=== PATIENT | male | born 1995 | race Caucasian/White ===

== ENCOUNTER 2024-09-06 14:51 | Outpatient (AMB) | payer OTHER, SELFPAY ==
--- NOTE | 2024-09-06 14:53 | A.OFFPC_ITS ---
Vital Signs 09/06/24 14:57 Height 5 ft 11 in Weight 253 lb BMI 35.3 BP 182/102 H Blood Pressure Location Rt brachial Pulse 88 Pulse Source Pulse Oximeter Temp 97.5 F Pulse Oximetry (%) 96 Intake Visit Reasons: physical Intake Note: sore throat a couple months back lost his voice and voice has not been the same, 2 years ago hurt his back at work and not any better. Allergies No Known Allergies Allergy (Verified 09/06/24 17:08) Medication List - Last Reconciled 09/06/24 by Christine Arnold PA-C No Known Home Meds [facility] Medical History History of meningitis Obesity, Class II, BMI 35-39.9 Elevated blood pressure reading Annual physical exam Low back pain radiating to lower extremity Hoarseness Neck pain Nasal polyps Nasal congestion Sinus pressure Left testicular pain Surgical History History of tonsillectomy Social History Housing: House Housing Other:: , Three Kids all Son's Patient Tobacco Use Status: Never used Tobacco Second Hand Smoke Exposure: No service: No Current occupational status: employed Current occupational exposures/hazards: Yes Cognitive needs: No Hearing needs: No Vision needs: Yes Physical exam (Primary Care) Vital Signs: Last Vital Signs Temp 97.5 F 09/06/24 14:57 Pulse 88 09/06/24 14:57 BP 182/102 H 09/06/24 14:57 Pulse Ox 96 09/06/24 14:57 Care Plan Goal for BP management: <130/80 may be related to white coat syndrome. Patient recently had a dot examination last week and past with a normal blood pressure. Patient will monitor his blood pressure for the next 2 weeks and return with a diary of his blood pressure checks. At that time if his blood pressure has been persistently elevated he will be started on antihypertensive. Patient understands and agrees with this plan. BMI result Body Mass Index 35.3 BMI Assessment/Plan discussion: High BMI High, discussed plan: lifestyle, weight reduction, dietary, physical activity and alcohol moderation Coding Level of Care Code New Pt Prev Care 18-39yr([id number] Diagnoses Annual physical exam Z00.00 Left testicular pain N50.812 Low back pain radiating to lower extremity M54.50; M79.606 Hoarseness R49.0 Neck pain M54.2 Nasal polyps J33.9 Nasal congestion R09.81 Sinus pressure J34.89 Elevated blood pressure reading R03.0 Obesity, Class II, BMI 35-39.9 E66.812 Assessment & Plan Assessment & Plan (1) Annual physical exam: Code(s): Z00.00 - Encounter for general adult medical examination without abnormal findings Category: Medical (2) Left testicular pain: Code(s): N50.812 - Left testicular pain Category: Medical Plan: Patient with intermittent left testicular pain. Patient most likely varicocele versus epididymitis. H&P not consistent with testicular torsion. A scrotal ultrasound was ordered at this time. Condition is stable will continue to monitor. (3) Low back pain radiating to lower extremity: Code(s): M54.50 - Low back pain, unspecified; M79.606 - Pain in leg, unspecified Category: Medical Plan: Patient reports lower back pain since a work-related injury that occasionally radiates down his leg. He denies any deficits, weakness urinary bowel retention or incontinence, saddle anesthesias or any recent falls. Patient has had x-rays of his lumbar spine in the past. Will order MRI of lumbar spine at this time. Condition is chronic and stable continue to monitor (4) Hoarseness: Code(s): R49.0 - Dysphonia Category: Medical Plan: Patient with tonsillectomy 4 years ago intermittent episodes of hoarseness and neck pain. Patient concerned requesting imaging. Will order CT scan of neck with IV contrast for further evaluation and treatment. Condition is chronic and stable continue to monitor. (5) Neck pain: Code(s): M54.2 - Cervicalgia Category: Medical Plan: Patient with tonsillectomy 4 years ago intermittent episodes of hoarseness and neck pain. Patient concerned requesting imaging. Will order CT scan of neck with IV contrast for further evaluation and treatment. Condition is chronic and stable continue to monitor. (6) Nasal polyps: Code(s): J33.9 - Nasal polyp, unspecified Category: Medical Plan: Patient with nasal congestion, intermittent headaches, sinus pressure pain, hoarseness and he believes he may have a polyp to the left Nare. Will order CT scan sinuses to better evaluate. Condition is chronic and stable continue to monitor. (7) Nasal congestion: Code(s): R09.81 - Nasal congestion Category: Medical Plan: Patient with nasal congestion, intermittent headaches, sinus pressure pain, hoarseness and he believes he may have a polyp to the left Nare. Will order CT scan sinuses to better evaluate. Condition is chronic and stable continue to monitor. (8) Sinus pressure: Code(s): J34.89 - Other specified disorders of nose and nasal sinuses Category: Medical Plan: Patient with nasal congestion, intermittent headaches, sinus pressure pain, hoarseness and he believes he may have a polyp to the left Nare. Will order CT scan sinuses to better evaluate. Condition is chronic and stable continue to monitor. (9) Elevated blood pressure reading: Code(s): R03.0 - Elevated blood-pressure reading, without diagnosis of hypertension Category: Medical Plan: Patient's blood pressure noted to be elevated today. He may have white coat syndrome due to patient recently had a dot physical exam for his recertification and had a normal blood pressure. Patient will be sent home with instructions to monitor his blood pressure once a day for the next 2 weeks and return with a blood pressure diary. We explained to him if he has elevated blood pressure within the next 2 weeks he will be started on antihypertensive. Patient understands agrees with this plan. (10) Obesity, Class II, BMI 35-39.9: Code(s): E66.812 - Obesity, class 2 Category: Medical Plan: Patient will improve his diet and exercise regimen. Condition is chronic and stable continue to monitor. Plan Plan Patient was informed and verbally consented to the use of an ambient scribe for clinic note documentation during this visit. 1. Chronic Back Pain An MRI of the lumbar spine will be pursued to identify the cause of persistent pain. Conservative management with stretches and good posture is advised until further evaluation. 2. Sciatica Treatment through symptomatic monitoring and assessment with imaging planned. Physical therapy considered upon readjustment of diagnosis. 3. Essential Hypertension The patient will monitor blood pressure readings at home for two weeks and record them to determine if hypertension is ongoing. Instructed lifestyle modifications to include reduced salt intake and regular exercise. 4. Hoarseness Post-surgical hoarseness management with voice rest. ENT evaluation will be considered if persistent. 5. Nasal Polyp A CT scan of facial bones will be conducted to explore the presence of nasal polyps. ENT consultation may follow based on results. 6. left scrotal pain Scheduled an ultrasound for further evaluation. Interim symptomatic care involves support and anti-inflammatory practices as required. Discussion Notes During our discussion, I addressed the likelihood of essential hypertension and emphasized the importance of regularly monitoring and recording blood pressure levels at home to guide management. Lifestyle modifications including reduced salt intake and increased physical activity were recommended to address hypertension and improve overall health. We discussed the need for imaging for nasal polyps and back pain to further our evaluation. I ensured the patient understood the proposed tests, their purpose, and the relevant follow-up steps. We also planned CT imaging for sinus evaluation and lumbar spine MRI. The importance of ENT consultation for continued hoarseness was highlighted. I provided reassurance and educated on the condition of occasional epididymal pain, noting the importance of further evaluation without immediate intervention. Orders: Orders Comprehensive [place]. Panel Fast Today . - Encounter for general adult m edical examination without abnormal findings Magnesium Today . - Encounter for general adult medical examination without abnormal findings Phosphorus Today Z. - Encounter for general adult medical examination without abnormal findings Zinc Today Z. - Encounter for general adult medical examination without abnormal findings Vitamin B12 and Folate Today Z. - Encounter for general adult medical examination without abnormal findings Vitamin B1 Today . - Encounter for general adult medical examination without abnormal findings Vitamin A Today . - Encounter for general adult medical examination without abnormal findings TSH reflex Free T4 Today .00 - Encounter for general adult medical examination without abnormal findings MR lumbar spine wo con Today M54.50 - Low back pain, unspecified, M79.606 - Pain in leg, unspecified C Reactive Protein Today Z00.00 - Encounter for general adult medical examination without abnormal findings Complete Blood Count Auto Diff Today Z00.00 - Encounter for general adult medical examination without abnormal findings Erythrocyte Sedimentation Rate Today Z. - Encounter for general adult medical examination without abnormal findings Lipid Panel Today Z00.00 - Encounter for general adult medical examination without abnormal findings Hemoglobin A1c Today Z. - Encounter for general adult medical examination without abnormal findings Liver Panel Today . - Encounter for general adult medical examination without abnormal findings Parathyroid Hormone Intact Today Z. - Encounter for general adult medical examination without abnormal findings Vitamin D 25-OH Total Today Z00.00 - Encounter for general adult medical examination without abnormal findings Testosterone, Total Today Z00.00 - Encounter for general adult medical examination without abnormal findings PSA,Total (Free>4and<10) Today Z00.00 - Encounter for general adult medical examination without abnormal findings US scrotum Today N50.812 - Left testicular pain CT sinus wo IV con Today J33.9 - Nasal polyp, unspecified, J34.89 - Other specified disorders of nose and nasal sinuses, R09.81 - Nasal congestion CT soft tissue neck w IV con Today M54.2 - Cervicalgia, R49.0 - Dysphonia Patient Instructions: Patient Instructions - Monitor and record blood pressure at home twice daily for two weeks, and report findings. - Reduce salt intake and increase physical activity. - Schedule and complete a CT scan for nasal evaluation and MRI for back pain assessment. - Pay attention to hoarseness; obtain CT scan soft tissue neck, if persistent, consider ENT evaluation. - Be aware of signs requiring urgent care, such as significant increase or decrease in blood pressure, severe pain, or new neurological symptoms. - Keep a dedicated log of symptoms, especially related to back pain and epididymal discomfort. Scribe Plan - Not visible on output: History of Present Illness The patient is a 29-year-old male presenting for his initial primary care examination and to establish a new primary care provider. 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 He went to [place] when. He reports a past medical history of tonsillectomy 4 years ago. He denies being on any medications at this time. 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 On exam today he was noted to have a blood pressure reading of 182/102 mmHg raised concerns for possible undiagnosed hypertension. Although patient reports he just had a doubt examination and had a normal blood pressure last week and was able to re-certify for his DOT certification. A history of chronic back pain is noted, mainly from a previous work incident. Patient reports this was a work-related injury when he worked in [place] in the past. He was working with the [employer] and when he went to dump a pool pump into the [employer] truck he felt a sudden pain in his lower back. He reports he believes he had x-ray imaging and had physical therapy although he was unable to finish physical therapy and was released from that job. Since then he has been having back pain and intermittently it is worse and patient is concerned about this. He denies any recent sudden weight gain or weight loss, lower extremity paresthesias, weakness, recent falls or trauma, urinary incontinence or bowel incontinence or retention, saddle anesthesias or any other symptoms related to this. Patient also concerned due to chronic nasal congestion and believes he may have a polyp in his left Nare. He also reports occasional hoarseness since his tonsillectomy 4 years ago. He also reports recently having a hematoma to his left almaraz from a soccer injury when he was playing with his brother. He also reports some testicular pain that has been present for months on the left testicle. He denies any thoughts of STIs, abnormal penile discharge, rashes or lesions to the penile area or the scrotum. He reports he is able to urinate normally and have normal bowels. Social History - Employment: Engages in heavy physical work; experienced work-related injury. - Family Status: , with children. - Substance Use: Denies smoking or illicit drug use. - Exercise: Previously participated in weightlifting, but inconsistently adheres to a fitness regimen. - Nutritional Intake: Recently increased protein intake, as noted by use of protein shakes. Review of Systems - General: Denies weight loss. - Cardiovascular: Denies chest pain, shortness of breath. - Neurological: Reports occasional headaches, non-recurring. - Musculoskeletal: Denies acute swelling; notes chronic back and leg pain. - Respiratory: Denies chronic cough or dyspnea. - Genitourinary: Reports episodic left testicular discomfort. Physical Exam Appearance: Alert. Oriented X3. No acute distress. Head: Normal external exam. Normocephalic. Atraumatic. Eyes: Pupils are equal, round, and reactive to light. Extraocular movements intact. Conjunctiva and sclera normal. Eyelids normal. Ears: External auditory canal normal. Tympanic membranes normal. Throat: Pharynx normal. Uvula midline. Moist mucous membranes. Noted hoarseness and congestion, with polyps observed in the throat. Neck: Normal inspection. Neck supple. Full range of motion. No adenopathy. Thyroid Normal. No meningeal signs. No neck mass noted. Cardiovascular: Blood pressure noted as high at 182/102. Normal heart rate and rhythm. Heart sound normal. No murmurs noted. Pulses normal throughout. Respiratory: No respiratory distress. Painless inspiration. Breath sounds normal. No wheezes/rales/rhonchi noted. Chest nontender. No accessory muscle usage noted or decreased air movement noted. Abdomen: Soft and nontender. Bowel sounds normal in all 4 quadrants. No distention noted. No organomegaly noted. No visible injury noted. Back: No costovertebral angle tenderness. Full range of motion noted. Reports chronic back pain, particularly in the lower back, with a history of injury. Skin: Skin warm and dry. Normal skin color. Normal skin turgor. No rashes/lesions/lacerations noted. Extremities: No lower extremity edema. Extremities exhibit normal range of motion. Extremities nontender. Noted hematoma on the almaraz from previous injury. Neuro: Oriented X 3. No motor deficit. No sensory deficit. Reflexes normal. Reports occasional headaches, not frequent, possibly related to past meningitis.
[2024-09-06 14:57] VITALS: BP 182/102; PULSE 88; TEMP 36.4; O2SAT 96; BMI 35.3
--- OUTSIDE RECORDS SUMMARY | 2024-09-06 17:44 | XMS_ITS ---
Author Name [facility] Organization Unknown Care Team Organization Name Specialty Phone Email Start Date End Da te [facility] 05/18/2022 02/02/2024
== END 2024-09-06 15:36 | disposition home or self-care (01) ==
LOC: HO.HMCSH 14:51
PROVIDERS: PCP Internal Medicine; Visit Provider Physician Assistant Medical
DX: Z00.00 Encounter for general adult medical examination without abnormal findings (principal); N50.812 Left testicular pain; M54.50 Low back pain, unspecified; M79.606 Pain in leg, unspecified; R49.0 Dysphonia; M54.2 Cervicalgia; J33.9 Nasal polyp, unspecified; R09.81 Nasal congestion; J34.89 Other specified disorders of nose and nasal sinuses; R03.0 Elevated blood-pressure reading, without diagnosis of hypertension; E66.812 Obesity, class 2

== ENCOUNTER 2024-09-17 13:21 | Outpatient (REF) | payer OTHER, SELFPAY ==
--- NOTE | ~2024-09-17 | US_ITS ---
CLINICAL HISTORY: N50.812 - Left testicular pain US Scrotum with Doppler Comparison: None Findings: Right testicle normal echotexture, 5.2 x 2.6 x 4.1 cm. Left testicle normal echotexture, 4.8 x 2.2 x 3.8 cm. Normal color flow and arterial/venous spectral tracing of both testicles. Incidental 6 mm right epididymal head cyst. No varicoceles. Trace hydroceles. IMPRESSION: No acute findings or evidence of torsion. This document has been electronically signed by: Erick Reyna MD on 09/18/2024 08:02:35
--- OUTSIDE RECORDS SUMMARY | 2024-09-17 15:12 | XMS_ITS | Clinical Summary ---
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 Medical History Medical History Date Comments Abnormal MRI of head 05/04/2014 DX:Abnormal MRI of head; COMMENT: History of bilateral optic neuritis 2007 (see at [facility]) no report History of viral meningitis DX:H istory of viral meningitis Family History Medical History Relation Name Comments Asthma Uncle 1 Relation Name Status Comments Uncle 1 Uncle 2 Social History Tobacco Use Types Packs/Day Years Used Date Smoking Tobacco: Never Smokeless Tobacco: Never Alcohol Use Standard Drinks/Week Comments No 0 (1 standard drink = 0.6 oz pur e alcohol) Sex and Gender Information Value Date Recorded Sex Assigned at Not on file Legal Sex Male 4:35 AM EST Gender Identity Not on file Sexual Orientation Not on file Obstetrics History Plan of Treatment Health Maintenance Due Date Last Done Comments Hepatitis A Vaccines (2 of 2 - 2-dose series) 09/18/2011 03/19/2011 HPV Vaccines (2 - Male 3-dose series) 07/26/2013 06/28/2013 DTaP,Tdap,and Td Vaccines (6 - Td or Tdap) 12/26/2018 12/26/2008, 02/28/1999, 11/05/1996, Additional history exists Depression Screening 07/15/2023 HIV Screening 07/15/2023 Hepatitis C Screening 07/15/2023 Social Influencers of Health Screening 07/15/2023 COVID-19 Vaccine ( season) 2024 Influenza Vaccine (#1) 2024 05/20/2014, 2012 Hepatitis B Vaccines Completed 1995, 1995, 1995 HIB Vaccines Completed 04/23/1996, 09/15, 1995, Additional history exists IPV Vaccines Completed 02/28/1999, 01/1996, 1995, Additional history exists MMR Vaccines Completed 02/28/1999, 04/23/1996 Varicella Vaccines Completed 05/21/2007, 04/23/1996 Meningococcal ACWY Vaccine Aged Out 03/19/2011, No longer eligible based on patient's age to complete this topic Meningococcal B Vacine Aged Out No lo nger eligible based on patient's age to complete this topic Pneumococcal Vaccine: Pediatrics (0 to 5 Years) and At-Risk Patients (6 to 64 Years) Aged Out No longer eligible based on patient's age to complete this topic RSV Immunization Patients Under 20 months Aged Out No longer eligible based on patient's age to complete this topic
[2024-09-17 16:07] LABS: MANUAL DIFF FLAG NO
[2024-09-17 16:33] LABS: Estimated Average Glucose 114 mg/dL; Hemoglobin A1C 154.9202 umol/L; Hemoglobin A1c % 5.6 % (<6.0); Total Hemoglobin (HGBA1C) 4128.4799 umol/L
[2024-09-17 16:39] LABS: Alanine Aminotransferase 29 U/L (0-40); Albumin Level 4.4 g/dL (3.5-5.0); Alkaline Phosphatase 88 U/L (39-117); Aspartate Amino Transferase 19 U/L (5-37); Bilirubin Direct 0.1 mg/dL (0.0-0.5); Bilirubin Total 0.4 mg/dL (0.0-1.0); C Reactive Protein < 0.10 mg/dL (< or = 0.50); Magnesium 2.3 mg/dL (1.6-2.6); Phosphorus 3.3 mg/dL (2.7-4.5); Total Protein 6.9 g/dL (6.5-8.0)
[2024-09-17 16:52] LABS: Basophils Percent Auto 0.5 % (0-2); Eosinophils Absolute Auto 0.3 X10*3/uL (0.0-0.4); Eosinophils Percent Auto 5.5 % (0-4); Hematocrit 45.7 % (42.0-52.0); Hemoglobin 15.9 g/dl (14.0-18.0); Imm Gran Abs Auto 0.02 X10*3/uL (0.00-0.03); Imm Gran Pct Auto 0.3 % (0.0-0.4); Lymphocytes Absolute Auto 1.3 X10*3/uL (1.2-4.9); Lymphocytes Percent Auto 22.6 % (20-40); Mean Corpuscular HGB Conc 34.8 g/dl (31.0-36.0); Mean Corpuscular Hemoglobin 27.9 pg (27.0-33.0); Mean Corpuscular Volume 80.2 fL (80.0-98.0); Mean Platelet Volume 12.7 fL (9.4-12.4); Monocytes Absolute Auto 0.5 X10*3/uL (0.1-1.2); Monocytes Percent Auto 7.9 % (2-11); Neutrophils Absolute Auto 3.7 x10*3/uL (2.0-8.3); Neutrophils Percent Auto 63.2 % (45-73); Platelet Count 251 X10*3/uL (160-400); White Blood Count 5.8 X10*3/uL (4.8-10.8)
[2024-09-17 16:53] LABS: PSA,Total (Free>4and<10) 0.49 ng/mL (0.00-4.00)
[2024-09-17 16:58] LABS: TSH reflex Free T4 0.74 uIU/mL (0.32-4.0); Vitamin D 25-OH Total 31.2 ng/mL (>30)
[2024-09-17 17:06] LABS: Folate 8.2 ng/mL (> or = 4.0); Vitamin B12 385 pg/mL (200-900)
[2024-09-17 17:36] LABS: Erythrocyte Sedimentation Rate 2 MM/HR (0-15)
[2024-09-21 01:28] LABS: Zinc 77 mcg/dL (60-130)
[2024-09-22 01:58] LABS: Vitamin A 59 mcg/dL (38-98)
[2024-09-23 16:32] LABS: Testosterone, Total 495 ng/dL (250-1100)
[2024-09-25 10:58] LABS: Vitamin B1 15 nmol/L (8-30)
== END 2024-09-17 13:22 | disposition home or self-care (01) ==
LOC: HO.HMGCX 13:21
PROVIDERS: PCP Physician Assistant Medical; Visit Provider Physician Assistant Medical
DX: Z00.00 Encounter for general adult medical examination without abnormal findings (principal); N50.812 Left testicular pain; Z12.5 Encounter for screening for malignant neoplasm of prostate; Z13.1 Encounter for screening for diabetes mellitus
CPT/HCPCS: 36415; 76870; 80076; 82306; 82607; 82746; 83036; 83735; 83970; 84100; 84153; 84403; 84425; 84443; 84590; 84630; 85025; 85652; 86140

== ENCOUNTER → 2024-09-17 13:39 | Outpatient (BNV) | payer OTHER, SELFPAY | PROVIDERS: PCP Physician Assistant Medical; Visit Provider Specialist | DX: N50.812 Left testicular pain (principal) | CPT/HCPCS: 76870 ==

== ENCOUNTER 2024-09-20 09:15 | Outpatient (AMB) | payer OTHER, SELFPAY ==
--- NOTE | 2024-09-20 09:23 | A.OFFPC_ITS ---
Vital Signs 09/20/24 09:24 Height 5 ft 11 in Weight 247 lb BMI 34.4 BP 148/90 H Respiration 16 Pulse 86 Pulse Source Pulse Oximeter Temp 97.8 F Temp Source Temporal Artery Scan Pulse Oximetry (%) 97 Oxygen Delivery Method Room Air Intake Visit Reasons: 2 week follow up Medical Device Required: No Accompanied by: Self / Same As Patient Allergies No Known Allergies Allergy (Verified 09/20/24 09:59) Medication List - Last Reconciled 09/20/24 by Christine Arnold PA-C lisinopril 10 mg PO DAILY metformin ER 500 mg PO DAILY Tobacco use date assessed: 09/20/24 Dental Screening Dental Screen Date: 09/20/24 Did you have a dental visit in the last 12 months?: Yes Did you have a dental problem in the last 6 months where you did not have access to dental care?: No Was dental information given to patient?: Patient has dentist HPI 2 week follow up HPI Details History of Present Illness The patient is a 29-year-old male presenting with follow-up for hypertension and evaluation of prediabetes treatment options. He has a recently documented history of essential hypertension, with initial high readings and reports improvement with lisinopril 10 mg daily. Additionally, he presents with prediabetes manifesting in a recent HbA1c of 5.6%, and has begun lifestyle adjustments for management. 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 Imaging and tests, some requiring rescheduling, for these conditions are pending for comprehensive evaluation. Social History - Family status: Has children, details i nvolvement in family activities and outings involving meals. - Dietary habits: Actively making effort s to improve diet by reducing salt intake and eating healthier. - Work: Has a demanding job which may in fluence treatment decisions regarding medication side effects. Review of Systems - General: Denies current headaches. - Endocrine: Reports occasional feelings associated with weird headaches, though not recently troubling. - Genitourinary: Denies pain in the test icles except for previous left-sided incidents. - Gastrointestinal: Denies diarrhea, tho ugh aware that diarrhea may occur with metformin initiation. Physical Exam Appearance: Alert. Oriented X3. No acute distress. Head: Normal external exam. Normocephalic. Atraumatic. Eyes: Pupils are equal, round, and reactive to light. Extraocular movements intact. Conjunctiva and sclera normal. Eyelids normal. Throat: Moist mucous membranes. Neck: Normal inspection. Neck supple. Full range of motion. Cardiovascular: Blood pressure is 148/90. Normal heart rate and rhythm. Back: Full range of motion noted. Skin: Skin warm and dry. Normal skin color. Extremities: Extremities exhibit normal range of motion. Results - Labs: Hemoglobin A1c is 5.6%, indicati ve of prediabetes; CBC normal. - Tests: Ultrasound of testicles indicat ed presence of right-sided cyst. [facility] Medical History (Updated 09/20/24 @ 10:06 by Christine Arnold PA-C) Testicular pain Hypertension Prediabetes History of meningitis Obesity, Class II, BMI 35-39.9 Elevated blood pressure reading Annual physical exam Low back pain radiating to lower extremity Hoarseness Neck pain Nasal polyps Nasal congestion Sinus pressure Left testicular pain Surgical History History of tonsillectomy Family History Mother No problems noted. Father No problems noted. Social History Housing: House Housing Other:: , Three Kids all Son's Patient Tobacco Use Status: Never used Tobacco Second Hand Smoke Exposure: No service: No Current occupational status: employed Current occupational exposures/hazards: Yes Cognitive needs: No Hearing needs: No Vision needs: Yes Questionnaire PHQ-9 Over the last 2 weeks, how often have you been bothered by any of the following problems? 1. Little interest or pleasure in doing things: not at all 2. Feeling down, depressed, or hopeless: not at all 3. Trouble falling or staying asleep, or sleeping too much: not at all 4. Feeling tired or having little energy: not at all 5. Poor appetite or overeating: not at all 6. Feeling bad about yourself - or that you are a failure or have let yourself or your family down: not at all 7. Trouble concentrating on things, such as reading the newspaper or watching television: not at all 8. Moving or speaking so slowly that other people could have noticed. Or the opposite - being so fidgety or restless that you have been moving around a lot more than usual: not at all 9. Thoughts that you would be better off or of hurting yourself in some way: not at all Total score: 0 Depression Screening Interpretation: Negative Depression Screening Done: Yes 35534 - PHQ-9 Billing: Yes Source: Developed by Drs. Baldemar Perdomo, Hortensia Lord, Jarrod Zhou and colleagues, with an educational max from [email or web address]. Thrive Questionnaire Date Thrive assessed: 09/20/24 I am a: Patient What is your living situation today?: I have a steady place to live Within the past 12 months, did the food you bought not last and you didn't have the money to get more?: Never true Within the past 12 months, did you worry whether your food would run out before you got money to buy more?: Never true Do you have trouble paying for medicines?: No Do you have trouble getting transportation to medical appointments?: No Do you have trouble paying your heating and electricity bill?: No Do you have trouble taking care of your child, family member or friend?: No Do you have trouble with day-to-day activities such as bathing, preparing meals, shopping, managing finances, etc.?: No Are you currently unemployed and looking for a job?: No Are you interested in more education?: No Please select the resources that you would like help with: None THRIVE Score: 0 AUDIT C Alcohol Use Questionnaire (AUDIT-C) 1. How often do you have a drink containing alcohol?: Never 3. How often do you have six or more drinks on one occasion?: Never Total Score: 0 Score Reviewed/Action Taken: No YOLANDA-7 AMB Questionnaire YOLANDA-7 Date YOLANDA - 7 assessed: 09/20/24 Feeling nervous, anxious, or on edge: 0 = Not at all Not being able to stop or control worryin = Not at all Worrying too much about different things: 0 = Not at all Trouble relaxin = Not at all Being so restless that it is hard to sit still: 0 = Not at all Becoming easily annoyed or irritable: 0 = Not at all Feeling afraid as if something awful might happen: 0 = Not at all Total YOLANDA-7 score (0-4 normal; 5-9 mild; 10-14 moderate; 15-21 severe): 0 Source: Developed by Drs. Baldemar Perdomo, Hortensia Lord, Jarrod Zhou and colleagues, with an educational max from [email or web address]. YOLANDA-7 Assessment Billing YOLANDA-7 Assessment Tool: YOLANDA-7 Assessment 19460 Physical exam (Primary Care) Vital Signs: Last Vital Signs Temp 97.8 F 09/20/24 09:24 Pulse 86 09/20/24 09:24 Resp 16 09/20/24 09:24 BP 148/90 H 09/20/24 09:24 Pulse Ox 97 09/20/24 09:24 Oxygen Delivery Method Room Air 09/20/24 09:24 Care Plan Goal for BP management: <130/90 patient to continue lisinopril will increase from 10 mg to 20 mg daily BMI result Body Mass Index 34.4 BMI Assessment/Plan discussion: High BMI High, discussed plan: lifestyle, weight reduction, dietary, physical activity and alcohol moderation Tobacco/Smoking Status: Tobacco use Status Tobacco use date assessed 09/20/24 09/20/24 09:30 Patient Tobacco Use Status Never used Tobacco 09/20/24 09:30 PHQ-9: PHQ-9 Score PHQ-9: Total score 0 09/20/24 10:03 Depression Screening Interpretation: Negative Thrive Assessment: Date of Thrive Assessment Date Thrive assessed 09/20/24 09/20/24 09:30 Coding Level of Care Code Est Pt Level 3 (10282) Complex EM visit Add On G2211 Diagnoses Hypertension I10 Prediabetes R73.03 Obesity, Class II, BMI 35-39.9 E66.812 Hoarseness R49.0 Testicular pain N50.819 Nasal congestion R09.81 Sinus pressure J34.89 Additional Codes YOLANDA-7 Assessment Billing - YOLANDA-7 Assessment Tool: YOALNDA-7 Assessment 62382 ([id number]) PHQ-9 - 23180 - PHQ-9 Billing: Yes ([id number]) Assessment & Plan Assessment & Plan (1) Hypertension: Code(s): I10 - Essential (primary) hypertension Category: Medical Plan: Management includes continuation of lisinopril, with instructions to increase lisinopril dose to 20 mg daily with instructions to check BP 2 hours after taking blood pressure medication. (2) Prediabetes: Code(s): R73.03 - Prediabetes Category: Medical Plan: Introduction of metformin with a focus on lifestyle modification and adjustment plans based on tolerance. (3) Obesity, Class II, BMI 35-39.9: Code(s): E66.812 - Obesity, class 2 Category: Medical (4) Hoarseness: Code(s): R49.0 - Dysphonia Category: Medical Plan: Scheduled imaging to clarify etiology and guide further therapeutic strategies. (5) Testicular pain: Code(s): N50.819 - Testicular pain, unspecified Category: Medical Plan: Conservative management and monitoring planned due to benign presentation, recent negative scrotal US. (6) Nasal congestion: Code(s): R09.81 - Nasal congestion Category: Medical Plan: Imaging planned for detailed assessment of chronic nasal congestion/pressure and subsequent management. (7) Sinus pressure: Code(s): J34.89 - Other specified disorders of nose and nasal sinuses Category: Medical Plan: Imaging planned for detailed assessment of chronic nasal congestion/pressure and subsequent management. Plan Plan Patient was informed and verbally consented to the use of an ambient scribe for clinic note documentation during this visit. 1. Essential Hypertension Management includes continuation of lisinopril, with instructions to increase lisinopril dose to 20 mg daily with instructions to check BP 2 hours after taking blood pressure medication. 2. Nasal Polyps Imaging planned for detailed assessment of nasal polyps and subsequent management. 3. Voice Hoarseness Scheduled imaging to clarify etiology and guide further therapeutic strategies. 4. Prediabetes Introduction of metformin with a focus on lifestyle modification and adjustment plans based on tolerance. 5. Right Testicular Cyst Conservative management and monitoring planned due to benign presentation. Discussion Notes During the visit, I discussed with the patient his condition of essential hypertension and the effectiveness of the current lisinopril regimen. The option of continuing therapy due to favorable blood pressure changes was agreed upon. Managing prediabetes was approached with lifestyle changes coupled with metformin, acknowledging potential side effects like diarrhea, and the patient consented to this approach. Imaging for nasal polyps and hoarseness was scheduled, explaining the need to understand causative factors before therapeutic decisions. Considerations for evaluating his right testicular cyst and pending further intervention were also detailed. The importance of communication in case of any new symptoms or adverse reactions was emphasized as part of his follow-up plan. Medications: New metformin ER 500 mg PO DAILY 90 tabs 1RF Patient Instructions: Patient Instructions - Continue taking lisinopril as prescribed and monitor your blood pressure regularly. - Begin metformin as discussed, and reach out if gastrointestinal side effects become unmanageable. - Maintain lifestyle changes focusing on a healthy diet and reducing salt intake. - Follow up with imaging studies as scheduled, and ensure completion of pending blood work. - Schedule a follow-up appointment in one month to reassess hypertension and prediabetes management plans. - Report any new symptoms or concerns immediately for timely intervention.
[2024-09-20 09:24] VITALS: BP 148/90; PULSE 86; RESP 16; TEMP 36.6; O2SAT 97; BMI 34.4
--- OUTSIDE RECORDS SUMMARY | 2024-09-20 10:17 | XMS_ITS | Clinical Summary ---
Author Organization [facility] ity Address [address] [place] [address] Care Team Providers Care [employer] Welter Name Role Phone Unavailable Primary Care Provider [...]
== END 2024-09-20 09:55 | disposition home or self-care (01) ==
LOC: HO.HMCSH 09:15
PROVIDERS: PCP Physician Assistant Medical; Visit Provider Physician Assistant Medical
DX: I10 Essential (primary) hypertension (principal); R73.03 Prediabetes; E66.812 Obesity, class 2; R49.0 Dysphonia; N50.819 Testicular pain, unspecified; R09.81 Nasal congestion; J34.89 Other specified disorders of nose and nasal sinuses

== ENCOUNTER → 2024-09-20 09:15 | Outpatient (BNVA) | payer OTHER, SELFPAY | PROVIDERS: PCP Physician Assistant Medical; Visit Provider Physician Assistant Medical | DX: I10 Essential (primary) hypertension (principal); R73.03 Prediabetes; E66.812 Obesity, class 2; Z68.34 Body mass index [BMI] 34.0-34.9, adult; R49.0 Dysphonia; N50.819 Testicular pain, unspecified; R09.81 Nasal congestion; J34.89 Other specified disorders of nose and nasal sinuses; J33.9 Nasal polyp, unspecified; Z79.899 Other long term (current) drug therapy | CPT/HCPCS: 96127 ==

== ENCOUNTER 2024-10-19 13:57 | Outpatient (AMB) | payer OTHER, SELFPAY ==
--- NOTE | 2024-10-19 14:04 | MHC.PC.OV ---
Vital Signs 10/19/24 14:14 Height 5 ft 11 in Weight 247 lb 0.8 oz BMI 34.5 BP 137/79 Blood Pressure Location Rt brachial Pulse 88 Pulse Source Pulse Oximeter Temp 98.4 F Pulse Oximetry (%) 95 Intake Visit Reasons: follow up Intake Note: no isuues Allergies No Known Allergies Allergy (Verified 10/19/24 14:38) Medication List - Last Reconciled 10/19/24 by Christine Arnold PA-C lisinopril 10 mg PO DAILY Tobacco use date assessed: 09/20/24 Dental Screening Dental Screen Date: 09/20/24 Did you have a dental visit in the last 12 months?: Yes Did you have a dental problem in the last 6 months where you did not have access to dental care?: No Was dental information given to patient?: Patient has dentist HPI follow up HPI Details The patient is a 29-year-old male presenting with management of Essential Hypertension and medication side effects. He reports variable home blood pressure readings with lowest at 136/80 mmHg and at times rising to 160 mmHg systolic before decreasing. He's been on 10 mg lisinopril, having experienced adverse side effects from a higher 20 mg dosage, reporting discomfort on his left side of his chest. He missed his dose this morning but took it before the visit. His home pressure readings might be unreliable due to an unsuitable cuff size. Patient experiences gastrointestinal symptoms when taking metformin for pre diabetes and weight loss, leading to its discontinuation. He reports diarrhea and stomach unease, reducing his intake, and modifying his diet. Certain foods have caused nausea and vomiting, like broccoli. His recent testosterone level was around 500 ng/dL, and though concerned about its range, it is within the middle of normal levels. Upcoming imaging appointments are scheduled, with some adjusted due to work. Social History - Employment: Confirmed that work commitments impacted scheduling of a medical appointment. - Nutrition: Recent dietary modification with reduced snack consumption and an attempt to eat healthier foods. 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 [facility] Medical History Epididymal cyst Testicular pain Hypertension Prediabetes History of meningitis Obesity, Class II, BMI 35-39.9 Elevated blood pressure reading Annual physical exam Low back pain radiating to lower extremity Hoarseness Neck pain Nasal polyps Nasal congestion Sinus pressure Left testicular pain Surgical History History of tonsillectomy Family History Mother No problems noted. Father No problems noted. Social History Housing: House Housing Other:: , Three Kids all Son's Patient Tobacco Use Status: Never used Tobacco Second Hand Smoke Exposure: No service: No Current occupational status: employed Current occupational exposures/hazards: Yes Cognitive needs: No Hearing needs: No Vision needs: Yes Questionnaire PHQ-9 Over the last 2 weeks, how often have you been bothered by any of the following problems? 1. Little interest or pleasure in doing things: not at all 2. Feeling down, depressed, or hopeless: not at all 3. Trouble falling or staying asleep, or sleeping too much: not at all 4. Feeling tired or having little energy: not at all 5. Poor appetite or overeating: not at all 6. Feeling bad about yourself - or that you are a failure or have let yourself or your family down: not at all 7. Trouble concentrating on things, such as reading the newspaper or watching television: not at all 8. Moving or speaking so slowly that other people could have noticed. Or the opposite - being so fidgety or restless that you have been moving around a lot more than usual: not at all 9. Thoughts that you would be better off or of hurting yourself in some way: not at all Total score: 0 Depression Screening Interpretation: Negative Depression Screening Done: Yes 03237 - PHQ-9 Billing: Yes Source: Developed by Drs. Baldemar Perdomo, Hortensia Lord, Jarrod Zhou and colleagues, with an educational max from [employer]. Thrive Questionnaire Date Thrive assessed: 09/20/24 I am a: Patient What is your living situation today?: I have a steady place to live Within the past 12 months, did the food you bought not last and you didn't have the money to get more?: Never true Within the past 12 months, did you worry whether your food would run out before you got money to buy more?: Never true Do you have trouble paying for medicines?: No Do you have trouble getting transportation to medical appointments?: No Do you have trouble paying your heating and electricity bill?: No Do you have trouble taking care of your child, family member or friend?: No Do you have trouble with day-to-day activities such as bathing, preparing meals, shopping, managing finances, etc.?: No Are you currently unemployed and looking for a job?: No Are you interested in more education?: No Please select the resources that you would like help with: None THRIVE Score: 0 AUDIT C Alcohol Use Questionnaire (AUDIT-C) 1. How often do you have a drink containing alcohol?: Never 3. How often do you have six or more drinks on one occasion?: Never Total Score: 0 Score Reviewed/Action Taken: No YOLANDA-7 AMB Questionnaire YOLANDA-7 Date YOLANDA - 7 assessed: 09/20/24 Feeling nervous, anxious, or on edge: 0 = Not at all Not being able to stop or control worryin = Not at all Worrying too much about different things: 0 = Not at all Trouble relaxin = Not at all Being so restless that it is hard to sit still: 0 = Not at all Becoming easily annoyed or irritable: 0 = Not at all Feeling afraid as if something awful might happen: 0 = Not at all Total YOLANDA-7 score (0-4 normal; 5-9 mild; 10-14 moderate; 15-21 severe): 0 Source: Developed by Drs. Baldemar Perdomo, Hortensia Lord, Jarrod Zhou and colleagues, with an educational max from [employer]. YOLANDA-7 Assessment Billing YOLANDA-7 Assessment Tool: YOLANDA-7 Assessment 48508 Review of Systems Const Details: - Cardiovascular: Reports variable blood pressure readings at home. - Gastrointestinal: Reports diarrhea, nausea, and vomiting after certain foods. Denies other symptoms. - Endocrine: Denies symptoms directly related to testosterone levels, but discusses management concerns over testosterone range. Physical exam (Primary Care) Vital Signs: Last Vital Signs Temp 98.4 F 10/19/24 14:14 Pulse 88 10/19/24 14:14 BP 172/82 H 10/19/24 14:14 Pulse Ox 95 10/19/24 14:14 Care Plan Goal for BP management: <130/90 at Goal BMI result Body Mass Index 34.5 BMI Assessment/Plan discussion: High BMI High, discussed plan: lifestyle, weight reduction, dietary, physical activity and alcohol moderation Tobacco/Smoking Status: Tobacco use Status Tobacco use date assessed 09/20/24 10/19/24 14:05 Patient Tobacco Use Status Never used Tobacco 10/19/24 14:05 PHQ-9: PHQ-9 Score PHQ-9: Total score 0 10/19/24 14:19 Depression Screening Interpretation: Negative Thrive Assessment: Date of Thrive Assessment Date Thrive assessed 09/20/24 10/19/24 14:05 Const Other: Appearance: Alert. Oriented X3. No acute distress. Head: Normal external exam. Normocephalic. Atraumatic. Eyes: Pupils are equal, round, and reactive to light. Extraocular movements intact. Conjunctiva and sclera normal. Eyelids normal. Throat: Pharynx normal. Uvula midline. Moist mucous membranes. Neck: Normal inspection. Neck supple. Full range of motion. Cardiovascular: Normal heart rate and rhythm. Respiratory: No respiratory distress. Painless inspiration. Back: Full range of motion noted. Skin: Skin warm and dry. Normal skin color. Normal skin turgor. No rashes/lesions/lacerations noted. Extremities: Extremities exhibit normal range of motion. Results Reviewed Results Reviewed: - Labs: Testosterone level approximately 500 ng/dL. Coding Level of Care Code Est Pt Level 3 (88622) Complex EM visit Add On G2211 Diagnoses Hypertension I10 Additional Codes YOLANDA-7 Assessment Billing - YOLANDA-7 Assessment Tool: YOLANDA-7 Assessment 87978 ([id number]) PHQ-9 - 24334 - PHQ-9 Billing: Yes ([id number]) Assessment & Plan Assessment & Plan (1) Hypertension: Code(s): I10 - Essential (primary) hypertension Category: Medical Plan: Patient should continue 10 mg lisinopril daily. Systolic pressures vary, potentially affected by incorrect cuff size. Encourage accurate readings with a proper cuff, lifestyle changes, and a three-month follow-up. Condition is chronic and stable continue to monitor. Plan Plan Patient was informed and verbally consented to the use of an ambient scribe for clinic note documentation during this visit. 1. Essential Hypertension Patient should continue 10 mg lisinopril daily. Systolic pressures vary, potentially affected by incorrect cuff size. Encourage accurate readings with a proper cuff, lifestyle changes, and a three-month follow-up. 2. Medication Intolerance Discomfort endured at higher lisinopril dose and metformin-related stomach issues. Continue 10 mg lisinopril and refrain from metformin. Monitor symptom alleviation and consider alternative management as needed. 3. Gastrointestinal Symptoms Reports postprandial symptoms. Recommend dietary moderation and avoiding specific foods causing symptoms. Continue observing dietary influences on symptoms. During the visit, we discussed the management of the patient?s Essential Hypertension, ensuring the continued use of lisinopril 10 mg due to past intolerance symptoms on a higher dose. We discussed his inconsistent home blood pressure readings and suggested using a larger cuff for more accurate readings. The patient was recommended to maintain current dosage since recent clinical measurements showed optimal control. I explained the importance of lifestyle modifications, including dietary changes to control hypertension. Alternative medication options would be considered if symptoms persist. We reviewed the patient?s metformin intolerance, agreed on discontinuation, and discussed dietary impacts on gastrointestinal symptoms with recommendations to avoid certain trigger foods. Follow-up in three months was arranged with an emphasis on standardized blood pressure monitoring techniques, and the patient was counseled on normal testosterone level findings. Medications: Discontinued metformin ER Discontinued Reason: Doctor's Order 500 mg PO DAILY 90 tabs 1RF Patient Instructions: - Continue taking 10 mg of lisinopril daily. - Use the correct size cuff when checking blood pressure at home. - Avoid foods that cause stomach upset or nausea. - Monitor blood pressure daily and record readings. - Schedule and attend recommended imaging appointments. - Follow up in three months for blood pressure and medication reassessment. - Reach out if experiencing unusual or worsening symptoms.
[2024-10-19 14:14] VITALS: BP 137/79; PULSE 88; TEMP 36.9; O2SAT 95; BMI 34.5
--- OUTSIDE RECORDS SUMMARY | 2024-10-19 15:18 | XMS_ITS | Clinical Summary ---
Author Organization [facility] ity Address [address] [place] [address] Care Team Providers Care [employer] Name Role Phone Unavailable Primary Care Provider [...] COVID-19 Vaccine ( season) 2024 Influenza Vaccine (Season Ended) 2025 05/20/2014, 04/02/2013 Hepatitis B Vaccines Completed 1995, 1995, 1995 HIB Vaccines Completed 04/23/1996, 09/15, 1995, Additional history exists IPV Vaccines Completed 02/28/1999, 01/1996, 1995, Additional history exists MMR Vaccines Completed 02/28/1999, 04/23/1996 Varicella Vaccines Completed 05/21/2007, 04/23/1996 Meningococcal ACWY Vaccine Aged Out 03/19/2011, No longer eligible based on patient's age to complete this topic Meningococcal B Vaccine Aged Out No l onger eligible based on patient's age to complete this topic Pneumococcal Vaccine: Pediatrics (0 to 5 Years) and At-Risk Patients (6 to 64 Years) Aged Out No longer eligible based on patient's age to complete this topic RSV Immunization Patients Under 20 months Aged Out No longer eligible based on patient's age to complete this topic
== END 2024-10-19 14:39 | disposition home or self-care (01) ==
LOC: HO.HMCSH 13:57
PROVIDERS: PCP Physician Assistant Medical; Visit Provider Physician Assistant Medical
DX: I10 Essential (primary) hypertension (principal)

== ENCOUNTER → 2024-10-19 13:57 | Outpatient (BNVA) | payer OTHER, SELFPAY | PROVIDERS: PCP Physician Assistant Medical; Visit Provider Physician Assistant Medical | DX: I10 Essential (primary) hypertension (principal); Z79.899 Other long term (current) drug therapy | CPT/HCPCS: 96127 ==

== ENCOUNTER 2024-11-01 15:54 | Outpatient (AMB) | payer OTHER, SELFPAY ==
--- OUTSIDE RECORDS SUMMARY | 2024-11-01 15:57 | XMS_ITS | Clinical Summary ---
Author Organization [facility] ity Address [address] [place] [address] Care Team Providers Care Prison Teacher Name Role Phone Unavailable Primary Care Provider [...]
[2024-11-01 16:06] VITALS: BP 143/82; PULSE 94; RESP 14; TEMP 36.8; O2SAT 97; BMI 33.9
--- NOTE | 2024-11-01 16:06 | A.OFFPC_ITS ---
Vital Signs 11/01/24 16:06 Height 5 ft 11 in Weight 243 lb BMI 33.9 BP 143/82 H Respiration 14 Pulse 94 Pulse Source Pulse Oximeter Temp 98.2 F Temp Source Temporal Artery Scan Pulse Oximetry (%) 97 Oxygen Delivery Method Room Air Intake Visit Reasons: follow up Air Motor Repairer Required: No Accompanied by: Self / Same As Patient Allergies No Known Allergies Allergy (Verified 11/01/24 16:32) Medication List - Last Reconciled 11/01/24 by Christine Arnold PA-C valsartan 40 mg PO BID Tobacco use date assessed: 11/01/24 Dental Screening Dental Screen Date: 09/20/24 HPI follow up HPI Details The patient is a 29-year-old male presenting with concerns related to essential hypertension. The patient reported that his blood pressure readings have been elevated during recent dental visits, with a noted reading of 257/?. At a follow-up visit, it was recorded at 166/166, and the patient acknowledged frequent increases in blood pressure whenever assessed, attributing it to the anxiety of measurement. Today, despite not taking his antihypertensive medication, the reading was 143, highlighted as significantly improved. The patient has not consistently taken prescribed antihypertensive medication, noting he could not obtain valsartan due to supply issues. Though the patient intends to acquire the medication, compliance remains uncertain. Additionally, weight management efforts have resulted in a weight loss of 10 pounds, dropping from 253 to 243 pounds since September 06, which could contribute to improved blood pressure management. Dietary recommendations from his partner and efforts to reduce snack intake have been implemented. His symptoms include a lack of chest pain and shortness of breath, highlighting the stability of his condition amidst active treatment modification efforts. 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 - Physical Activity: Engages in occupati onal activities that involve moving trash cans. - Nutritional Intake: Involved in weight loss; has reduced the intake of snacks and lost 10 pounds. - Family Status: Supported by a partner who encourages healthy dietary habits. [facility] Medical History Epididymal cyst Testicular pain Hypertension Prediabetes History of meningitis Obesity, Class II, BMI 35-39.9 Elevated blood pressure reading Annual physical exam Low back pain radiating to lower extremity Hoarseness Neck pain Nasal polyps Nasal congestion Sinus pressure Left testicular pain Surgical History History of tonsillectomy Family History Mother No problems noted. Father No problems noted. Social History Housing: House Housing Other:: , Three Kids all Son's Patient Tobacco Use Status: Never used Tobacco Second Hand Smoke Exposure: No service: No Current occupational status: employed Current occupational exposures/hazards: Yes Cognitive needs: No Hearing needs: No Vision needs: Yes Questionnaire PHQ-9 Over the last 2 weeks, how often have you been bothered by any of the following problems? 1. Little interest or pleasure in doing things: not at all 2. Feeling down, depressed, or hopeless: not at all 3. Trouble falling or staying asleep, or sleeping too much: not at all 4. Feeling tired or having little energy: not at all 5. Poor appetite or overeating: not at all 6. Feeling bad about yourself - or that you are a failure or have let yourself o r your family down: not at all 7. Trouble concentrating on things, such as reading the newspaper or watching television: not at all 8. Moving or speaking so slowly that other people could have noticed. Or the opposite - being so fidgety or restless that you have been moving around a lot more than usual: not at all 9. Thoughts that you would be better off or of hurting yourself in some way: not at all Total score: 0 Depression Screening Interpretation: Negative Depression Screening Done: Yes 10303 - PHQ-9 Billing: Yes Source: Developed by Drs. Baldemar Perdomo, Hortensia Lord, Jarrod lama nd colleagues, with an educational max from [employer]. Thrive Questionnaire Date Thrive assessed: 09/20/24 I am a: Patient What is your living situation today?: I have a steady place to live Within the past 12 months, did the food you bought not last and you didn't have the money to get more?: Never true Within the past 12 months, did you worry whether your food would run out before you got money to buy more?: Never true Do you have trouble paying for medicines?: No Do you have trouble getting transportation to medical appointments?: No Do you have trouble paying your heating and electricity bill?: No Do you have trouble taking care of your child, family member or friend?: No Do you have trouble with day-to-day activities such as bathing, preparing meals, shopping, managing finances, etc.?: No Are you currently unemployed and looking for a job?: No Are you interested in more education?: No Please select the resources that you would like help with: None THRIVE Score: 0 AUDIT C Alcohol Use Questionnaire (AUDIT-C) 1. How often do you have a drink containing alcohol?: Never 3. How often do you have six or more drinks on one occasion?: Never Total Score: 0 Score Reviewed/Action Taken: No YOLANDA-7 AMB Questionnaire YOLANDA-7 Date YOLANDA - 7 assessed: 09/20/24 Feeling nervous, anxious, or on edge: 0 = Not at all Not being able to stop or control worryin = Not at all Worrying too much about different things: 0 = Not at all Trouble relaxin = Not at all Being so restless that it is hard to sit still: 0 = Not at all Becoming easily annoyed or irritable: 0 = Not at all Feeling afraid as if something awful might happen: 0 = Not at all Total YOLANDA-7 score (0-4 normal; 5-9 mild; 10-14 moderate; 15-21 severe): 0 Source: Developed by Drs. Baldemar Perdomo, Hortensia Lord, Jarrod Zhou and colleagues, with an educational max from [employer]. YOLANDA-7 Assessment Billing YOLANDA-7 Assessment Tool: YOLANDA-7 Assessment 32980 Review of Systems Const Details: - Cardiovascular: Reports elevated blood pressure. - Respiratory: Denies chest pain or shortness of breath. - General: Reports tiredness, has not had sufficient sleep. Physical exam (Primary Care) Vital Signs: Last Vital Signs Temp 98.2 F 11/01/24 16:06 Pulse 94 11/01/24 16:06 Resp 14 11/01/24 16:06 BP 143/82 H 05/19/25 16:06 Pulse Ox 97 11/01/24 16:06 Oxygen Delivery Method Room Air 11/01/24 16:06 Care Plan Goal for BP management: <140/90 patient instructed to take valsartan 40 mg b.i.d. BMI result Body Mass Index 33.9 BMI Assessment/Plan discussion: High BMI High, discussed plan: lifestyle, weight reduction, dietary, physical activity and alcohol moderation Tobacco/Smoking Status: Tobacco use Status Tobacco use date assessed 11/01/24 11/01/24 16:12 Patient Tobacco Use Status Never used Tobacco 11/01/24 16:12 PHQ-9: PHQ-9 Score PHQ-9: Total score 0 11/01/24 16:12 Depression Screening Interpretation: Negative Thrive Assessment: Date of Thrive Assessment Date Thrive assessed 09/20/24 11/01/24 16:12 Const Other: Appearance: Alert. Oriented X3. No acute distress. Head: Normal external exam. Normocephalic. Atraumatic. Eyes: Pupils are equal, round, and reactive to light. Extraocular movements intact. Conjunctiva and sclera normal. Eyelids normal. Throat: Pharynx normal. Uvula midline. Moist mucous membranes. Neck: Normal inspection. Neck supple. Full range of motion. Cardiovascular: Normal heart rate and rhythm. Respiratory: No respiratory distress. Painless inspiration. Back: Full range of motion noted. Skin: Skin warm and dry. Normal skin color. Extremities: Extremities exhibit normal range of motion. Neuro: Oriented X 3. Coding Level of Care Code Est Pt Level 3 (46644) Complex EM visit Add On G2211 Diagnoses Hypertension I10 Additional Codes YOLANDA-7 Assessment Billing - YOLANDA-7 Assessment Tool: YOLANDA-7 Assessment 92471 ([id number]) PHQ-9 - 75920 - PHQ-9 Billing: Yes ([id number]) Assessment & Plan Assessment & Plan (1) Hypertension: Code(s): I10 - Essential (primary) hypertension Category: Medical Plan: Patient was discontinued from lisinopril 10 mg due to adverse side effects. Patient was prescribed valsartan although due to short supplies that the pharmacy has not been able to pick up attendant today. Will pick it up later on today and start taking as prescribed. Patient with 1 month follow-up for blood pressure check. Condition is chronic and stable continue to monitor. Plan Plan Patient was informed and verbally consented to the use of an ambient scribe for clinic note documentation during this visit. 1. Essential Hypertension The patient is managing essential hypertension with a focus on consistent adherence to valsartan 40 mg b.i.d., emphasizing the significance of routine and timely medication intake to control blood pressure levels, particularly before stress-prone activities. Positive lifestyle changes include a 10-pound weight reduction, facilitated by dietary adjustments and partner support. Continued emphasis on treatment adherence and lifestyle changes are planned, with follow- up monitoring via telehealth to further manage hypertension and address any emerging side effects. During the appointment, we discussed the management of essential hypertension, stressing the importance of medication adherence and regular intake of lisinopril to manage blood pressure levels effectively. Lifestyle modifications, including weight loss and dietary changes, were positively acknowledged, working towards holistic blood pressure control. We agreed on verifying medication status and emphasized taking lisinopril three hours before anticipated stressors. Telehealth follow-ups were determined for subsequent evaluation of blood pressure and medication adherence, acknowledging that improvement occurs through these outlined management strategies. Patient Instructions: - Take valsartan b.i.d. as prescribed every day. Make sure to take it around three hours before any stressful events. - Continue with dietary modifications. Limit snacking to aid in further weight loss. - Monitor your blood pressure regularly and keep a log for upcoming telehealth appointments. - Follow up with your doctor via telehealth in one month to discuss blood pressure readings and medication effects. - Let us know immediately if you experience side effects from the medication or any unusual symptoms.
== END 2024-11-01 16:20 | disposition home or self-care (01) ==
LOC: HO.HMCSH 15:54
PROVIDERS: PCP Physician Assistant Medical; Visit Provider Physician Assistant Medical
DX: I10 Essential (primary) hypertension (principal)

== ENCOUNTER → 2024-11-01 15:54 | Outpatient (BNVA) | payer OTHER, SELFPAY | PROVIDERS: PCP Physician Assistant Medical; Visit Provider Physician Assistant Medical | DX: I10 Essential (primary) hypertension (principal) | CPT/HCPCS: 96127 ==

== ENCOUNTER 2024-11-16 14:47 | Outpatient (REF) | payer OTHER, SELFPAY ==
--- NOTE | ~2024-11-16 | CT_ITS ---
EXAMINATION: CT SINUS WITHOUT CONTRAST CLINICAL INFORMATION: Other specified disorder of the nose and nasal sinuses COMPARISON: None available. TECHNIQUE: Axial CT imaging was performed from just above the frontal sinuses to the base of dens. Coronal and sagittal reformatted images were generated from the original axial data set. ALARA: The examination used one or more of the following radiation dose reduction techniques: Automated exposure control, iterative reconstruction, and/or adjustment of mA and/or KV. DLP: 455 mGY*cm FINDINGS: Frontal sinuses are clear. The right medullary sinus demonstrates mild mucosal thickening. The left maxillary sinus demonstrates minimal mucosal thickening in the floor and medial region. There are postoperative changes with resection of medial maxillary wall. There is minimal mucosal thickening in the ethmoid sinuses. Sphenoid sinuses are clear. Mastoid air cells are pneumatized and clear. The bony nasal septum is mildly deviated toward the left. CT/CT sinus wo IV con IMPRESSION: There is minimal mucosal thickening in the right greater than left maxillary sinuses and ethmoid air cells status post sinus surgery. Electronically signed by: Aubrey Painting MD 11/16/2024 05:50 PM EDT
--- NOTE | ~2024-11-16 | CT_ITS ---
CLINICAL HISTORY: M54.2 - Cervicalgia CT soft tissue neck with contrast Comparison: None Findings: The visualized intracranial contents are unremarkable. No prevertebral fluid. Epiglottis is within normal limits. Pharyngeal mucosal space and parapharyngeal fat are normal. Salivary glands are unremarkable. No sialoliths. No suspicious thyroid nodules. Visualized lung apices are clear. No acute fractures. IMPRESSION: No acute findings. This document has been electronically signed by: Ricco Camarillo MD on 11/17/2024 12:01:04
--- OUTSIDE RECORDS SUMMARY | 2024-11-16 16:30 | XMS_ITS | Clinical Summary ---
Author Organization [facility] ity Address [address] [place] [address] Care Team Providers Care Percussion Instrument Tuner Name Role Phone Unavailable Primary Care Provider [...]
[2024-11-16] MEDS: iohexoL 350 MG/ML 100 ML INFUS..BTL IV (16:35)
== END 2024-11-16 14:48 | disposition home or self-care (01) ==
LOC: HO.CT 14:47
PROVIDERS: PCP Physician Assistant Medical; Visit Provider Physician Assistant Medical
DX: R09.81 Nasal congestion (principal); J34.89 Other specified disorders of nose and nasal sinuses; J33.9 Nasal polyp, unspecified; R49.0 Dysphonia; M54.2 Cervicalgia
CPT/HCPCS: 70486; 70491; Q9967

== ENCOUNTER → 2024-11-16 14:48 | Outpatient (BNV) | payer OTHER, SELFPAY | PROVIDERS: PCP Physician Assistant Medical; Visit Provider Radiology Diagnostic Radiology | DX: M54.2 Cervicalgia (principal) | CPT/HCPCS: 70491 ==

== ENCOUNTER 2024-11-18 14:48 | Outpatient (AMB) | payer OTHER, SELFPAY ==
--- NOTE | 2024-11-18 15:00 | A.OFFVIS_ITS ---
Intake Visit Reasons: epididymal head cyst Intake Note: New Patient presents for initial visit for epididymal head cyst Urology Medications: none Blood Thinner: none Chain Repairer Required: No Accompanied by: Self / Same As Patient Allergies No Known Allergies Allergy (Verified 11/18/24 15:32) HPI Comments Details: Gael is a 29-year-old male patient of Dr. Arnold. He has a past medical history of hypertension, prediabetes, obesity, and meningitis. He presents to the office today for ongoing left-sided testicular/scrotal discomfort he has been experiencing. In discussion with the patient today he reports symptoms have been present for quite some time. He reports having followed up with his PCP in discussing this issue at which time a scrotal ultrasound was ordered and performed and recommendations were made for urology referral for further assessment evaluation. Scrotal ultrasound results 10/08 no bilateral testicles are normal in echotexture. Incidental 6 mm right epididymal head cysts. No varicoceles. No acute findings or evidence of torsion. In assessment of the patient today the penis is circumcised right epididymal head cyst is palpated without any discomfort on exam today. No open lesions, drainage, or masses palpated throughout the system. He reports feeling pain/discomfort is intermittent. He believes symptoms started shortly after an incident with paint ball. He otherwise denies any bothersome urinary issues. He denies urinary urgency, urinary frequency, incontinence, nocturia, hematuria, dysuria, foul smelling urine, changes to urinary stream, flank pain, fever, and or chills. He is happy with his current voiding parameters. He denies any associated nausea or vomiting. We discussed at length potential causes of epididymal head cyst as well as further treatment options and risks and benefits of these treatment options. All questions were answered. He otherwise offers no other issues or concerns at this time. [facility] Medical History Epididymal cyst Testicular pain Hypertension Prediabetes History of meningitis Obesity, Class II, BMI 35-39.9 Elevated blood pressure reading Annual physical exam Low back pain radiating to lower extremity Hoarseness Neck pain Nasal polyps Nasal congestion Sinus pressure Left testicular pain Surgical History History of tonsillectomy Family History Mother No problems noted. Father No problems noted. Social History Housing: House Housing Other:: , Three Kids all Son's Patient Tobacco Use Status: Never used Tobacco Second Hand Smoke Exposure: No service: No Current occupational status: employed Current occupational exposures/hazards: Yes Cognitive needs: No Hearing needs: No Vision needs: Yes Review of Systems Const All systems reviewed & are unremarkable except as noted in HPI and below Physical Exam Const General: cooperative, healthy appearing, comfortable, no acute distress, well developed, alert and awake Orientation/consciousness: patient oriented x3 Limitations: no limitations HEENT Head: Yes normal to inspection, Yes normocephalic and Yes atraumatic Ears: hearing grossly normal bilaterally Eyes General: appearance normal, both eyes and all related structures Neck Neck: Yes normal visual inspection and Yes trachea midline Chest Chest palpation & inspection: normal inspection of the chest Resp Effort & Inspection: normal respiratory effort and able to speak in complete sentences Cardio Rate: regular rate GI Inspection: Yes normal to inspection General: Yes no CVA tenderness Back/Spine/Pelvis Back: no CVA tenderness Skin General skin exam: no rashes or lesions noted Neuro General: patient oriented x3 Extrem General: Yes normal to inspection Psych Appearance: grossly normal and well kempt Mental Status: mental status grossly normal Speech and movement: Normal speech and movement present and Clear speech present Affect: normal affect Attitude: cooperative Thought process: Normal thought process present Thought content: Normal thought content present Insight: Fair insight present (Psych) Judgement: Fair judgement present (Psych) Results AMB Urinalysis, Automated UA Leukoctes 0 Miguelina/uL Last Edit by AHSAN Chakraborty on 11/18/24 15:35 UA Nitrite Last Edit by AHSAN Chakraborty on 11/18/24 15:35 UA Urobilinogen 0.2 mg/dL Last Edit by Wyattfaith [facility]insflorinda [facility] on 11/18/24 15:3 5 UA Protein 30 mg/dL Last Edit by David De Anda [facility] on 11/18/24 15:35 UA pH 6.0 Last Edit by David De Anda, [facility] on 11/18/24 15:35 UA Blood 0 Bryant/uL Last Edit by David De Anda [facility] on 11/18/24 15:35 UA Specific [place] 1.030 Last Edit by David De Anda [facility] on 11/18/24 15: 35 UA Ketone Positive Last Edit by David De Anda, [facility] on 11/18/24 15:35 UA Bilirubin 1 mg/dL Last Edit by David De Anda, [facility] on 11/18/24 15:35 UA Glucose 0 mg/dL Last Edit by David De Anda [facility] on 11/18/24 15:35 Results Reviewed Results Reviewed: Date of Service: 09/17/24 Procedure(s): US scrotum Findings: Right testicle normal echotexture, 5.2 x 2.6 x 4.1 cm. Left testicle normal echotexture, 4.8 x 2.2 x 3.8 cm. Normal color flow and arterial/venous spectral tracing of both testicles. Incidental 6 mm right epididymal head cyst. No varicoceles. Trace hydroceles. IMPRESSION: No acute findings or evidence of torsion. Assessment & Plan Assessment & Plan (1) Epididymal cyst: Code(s): N50.3 - Cyst of epididymis Category: Medical Plan In office urinalysis results with the patient today; as noted above. Recent scrotal ultrasound results with the patient today; as noted above. We discussed at length potential causes of epididymal head cyst. We discussed further treatment options and risks and benefits of these treatment options. He denies any bothersome urinary issues or concerns. He reports be happy with current voiding parameters. Follow-up;PRN Orders: Orders AMB Urinalysis Automated Today Z13.9 - Encounter for screening, unspecified Patient Instructions: The patient had an opportunity to ask questions regarding the treatment plan. All questions were answered. Physical exam, labs, and imaging were discussed and reviewed in detail. As well as risks, benefits, and discussion of treatment choices. No major barriers to understanding were identified. The patient expressed understanding and agreement with the above treatment plan. The patient was made aware they should contact our office by phone for worsening of their current condition, the appearance of new symptoms, or with any questions or concerns. Compliance is encouraged with any medications and follow up testing that is ordered. It is a privilege to be allowed the opportunity to participate in? your urological care.? Again, if you have any questions or concerns If you have any questions or concerns please do not hesitate to contact me. The office is [phone]. This note is constructed using voice recognition software. While every effort has been made to ensure accuracy cost estimating clerk errors may have been included. Yours sincerely, NICK Kaba Coding Level of Care Code New Pt Level 3 (25610) Diagnoses Epididymal cyst N50.3
== END 2024-11-18 15:36 | disposition home or self-care (01) ==
LOC: HO.HUSH 14:48
PROVIDERS: PCP Physician Assistant Medical; Visit Provider Nurse Practitioner Family
DX: N50.3 Cyst of epididymis (principal); Z13.9 Encounter for screening, unspecified
CPT/HCPCS: 99203

== ENCOUNTER → 2024-11-18 14:48 | Outpatient (BNVA) | payer OTHER, SELFPAY | PROVIDERS: PCP Physician Assistant Medical; Visit Provider Nurse Practitioner Family | DX: N50.3 Cyst of epididymis (principal) | CPT/HCPCS: 81003 ==

== ENCOUNTER → 2024-12-08 09:48 | Outpatient (BNVA) | payer OTHER, SELFPAY | PROVIDERS: PCP Physician Assistant Medical; Visit Provider Physician Assistant Medical | DX: Z13.89 Encounter for screening for other disorder (principal) ==

== ENCOUNTER 2025-02-15 13:54 | Outpatient (AMB) | payer OTHER, SELFPAY ==
[2025-02-15 13:57] VITALS: BP 176/124; PULSE 74; RESP 16; TEMP 36.3; O2SAT 98; BMI 34.4
--- NOTE | 2025-02-15 13:57 | MHC.PC.OV ---
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 Accompanied by: Self / Same As Patient Allergies No Known Allergies Allergy (Verified 02/15/25 16:07) Medication List - Last Reconciled 02/15/25 by Christine Arnold PA-C valsartan 40 mg PO BID Tobacco use date assessed: 11/01/24 Dental Screening Dental Screen Date: 09/20/24 Did you have a dental visit in the last 12 months?: Yes Did you have a dental problem in the last 6 months where you did not have access to dental care?: No Was dental information given to patient?: Patient has dentist HPI Follow up HPI Details The patient is a 29-year-old male presenting for management of hypertension and monitoring of hemoglobin A1c levels. The patient has a history of essential hypertension, for which he is currently taking valsartan 40 mg once daily. He reports that the medication is effective when taken consistently, but there have been instances of elevated blood pressure readings due to missed doses. He forgot to take his blood pressure medication today due to [place] was [place]. He will take it once he leaves. He denies any acute symptoms at this time. The patient also has a history of elevated hemoglobin A1c, with recent levels increasing from 5.6% to 5.8%. He attributes this change to dietary habits, including increased fruit consumption, and acknowledges the need for dietary modifications. Social History - Nutritional intake: Reports increased fruit consumption, which may be impacting hemoglobin A1c levels. [facility] Medical History Epididymal cyst Testicular pain Hypertension Prediabetes History of meningitis Obesity, Class II, BMI 35-39.9 Elevated blood pressure reading Annual physical exam Low back pain radiating to lower extremity Hoarseness Neck pain Nasal polyps Nasal congestion Sinus pressure Left testicular pain Surgical History History of tonsillectomy Family History Mother No problems noted. Father No problems noted. Social History Housing: House Housing Other:: , Three Kids all Son's Patient Tobacco Use Status: Never used Tobacco Second Hand Smoke Exposure: No service: No Current occupational status: employed Current occupational exposures/hazards: Yes Cognitive needs: No Hearing needs: No Vision needs: Yes Questionnaire PHQ-9 Over the last 2 weeks, how often have you been bothered by any of the following problems? 1. Little interest or pleasure in doing things: not at all 2. Feeling down, depressed, or hopeless: not at all 3. Trouble falling or staying asleep, or sleeping too much: not at all 4. Feeling tired or having little energy: not at all 5. Poor appetite or overeating: not at all 6. Feeling bad about yourself - or that you are a failure or have let yourself or your family down: not at all 7. Trouble concentrating on things, such as reading the newspaper or watching television: not at all 8. Moving or speaking so slowly that other people could have noticed. Or the opposite - being so fidgety or restless that you have been moving around a lot more than usual: not at all 9. Thoughts that you would be better off or of hurting yourself in some way: not at all Total score: 0 Depression Screening Interpretation: Negative Depression Screening Done: Yes 93903 - PHQ-9 Billing: Yes Source: Developed by Drs. Baldemar Perdomo, Hortensia Lord, Jarrod Zhou and colleagues, with an educational max from [employer]. Thrive Questionnaire Date Thrive assessed: 09/20/24 I am a: Patient What is your living situation today?: I have a steady place to live Within the past 12 months, did the food you bought not last and you didn't have the money to get more?: Never true Within the past 12 months, did you worry whether your food would run out before you got money to buy more?: Never true Do you have trouble paying for medicines?: No Do you have trouble getting transportation to medical appointments?: No Do you have trouble paying your heating and electricity bill?: No Do you have trouble taking care of your child, family member or friend?: No Do you have trouble with day-to-day activities such as bathing, preparing meals, shopping, managing finances, etc.?: No Are you currently unemployed and looking for a job?: No Are you interested in more education?: No Please select the resources that you would like help with: None THRIVE Score: 0 AUDIT C Alcohol Use Questionnaire (AUDIT-C) 1. How often do you have a drink containing alcohol?: Never 3. How often do you have six or more drinks on one occasion?: Never Total Score: 0 Score Reviewed/Action Taken: No YOLANDA-7 AMB Questionnaire YOLANDA-7 Date YOLANDA - 7 assessed: 09/20/24 Feeling nervous, anxious, or on edge: 0 = Not at all Not being able to stop or control worryin = Not at all Worrying too much about different things: 0 = Not at all Trouble relaxin = Not at all Being so restless that it is hard to sit still: 0 = Not at all Becoming easily annoyed or irritable: 0 = Not at all Feeling afraid as if something awful might happen: 0 = Not at all Total YOLANDA-7 score (0-4 normal; 5-9 mild; 10-14 moderate; 15-21 severe): 0 Source: Developed by Drs. Baldemar Perdomo, Hortensia Lord, Jarrod Zhou and colleagues, with an educational max from [employer]. YOLANDA-7 Assessment Billing YOLANDA-7 Assessment Tool: YOLANDA-7 Assessment 74006 Review of Systems Const Details: - Cardiovascular: Reports elevated blood pressure readings when medication is missed. - Endocrine: Reports increase in hemoglobin A1c from 5.6% to 5.8%. All systems reviewed & are unremarkable except as noted in HPI and below Physical exam (Primary Care) Vital Signs: Last Vital Signs Temp 97.3 F 02/15/25 13:57 Pulse 74 02/15/25 13:57 Resp 16 02/15/25 13:57 BP 176/124 H 02/15/25 13:57 Pulse Ox 98 02/15/25 13:57 Oxygen Delivery Method Room Air 02/15/25 13:57 Care Plan Goal for BP management: <140/90 patient instructed to take his valsartan as scheduled and return with blood pressure diary BMI result Body Mass Index 34.4 BMI Assessment/Plan discussion: High BMI High, discussed plan: lifestyle, weight reduction, dietary, physical activity, alcohol moderation and other Tobacco/Smoking Status: Tobacco use Status Tobacco use date assessed 11/01/24 02/15/25 14:03 Patient Tobacco Use Status Never used Tobacco 02/15/25 14:03 PHQ-9: PHQ-9 Score PHQ-9: Total score 0 02/15/25 14:41 Depression Screening Interpretation: Negative Thrive Assessment: Date of Thrive Assessment Date Thrive assessed 09/20/24 02/15/25 14:03 Const Other: Appearance: Alert. Oriented X3. No acute distress. Head: Normal external exam. Normocephalic. Atraumatic. Eyes: Pupils are equal, round, and reactive to light. Extraocular movements intact. Conjunctiva and sclera normal. Eyelids normal. Throat: Pharynx normal. Uvula midline. Moist mucous membranes. Neck: Normal inspection. Neck supple. Full range of motion. Cardiovascular: Normal heart rate and rhythm. Respiratory: No respiratory distress. Painless inspiration. Back: Full range of motion noted. Skin: Skin warm and dry. Normal skin color. Normal skin turgor. No rashes/lesions/lacerations noted. Extremities: Extremities exhibit normal range of motion. Neuro: Oriented X 3. No motor deficit. No sensory deficit. Reflexes normal. Results AMB Hemoglobin A1c AMB Hemoglobin A1c 5.8 % Last Edit by TYRONE Dean on 02/15/25 14:41 Results Reviewed Results Reviewed: Laboratory Last Values Hgb A1c (Clinic) 5.8 % (4.0-6.0) 02/15/25 14:26 - Labs: Hemoglobin A1c increased from 5.6% to 5.8%. Coding Level of Care Code Est Pt Level 4 (46132) Complex EM visit Add On G2211 Diagnoses Hypertension I10 Prediabetes R73.03 Additional Codes YOLANDA-7 Assessment Billing - YOLANDA-7 Assessment Tool: YOLANDA-7 Assessment 24882 ([id number]) PHQ-9 - 54352 - PHQ-9 Billing: Yes ([id number]) Assessment & Plan Assessment & Plan (1) Hypertension: Code(s): I10 - Essential (primary) hypertension Category: Medical Plan: The patient is advised to continue taking valsartan 40 mg once daily for blood pressure management. Regular monitoring of blood pressure is recommended, and the patient should ensure medication adherence to prevent elevated readings. (2) Prediabetes: Code(s): R73.03 - Prediabetes Category: Medical Plan: The patient is encouraged to modify dietary habits to help reduce hemoglobin A1c levels. Follow-up in three months is recommended to reassess hemoglobin A1c and evaluate the effectiveness of dietary changes. Plan Plan Patient was informed and verbally consented to the use of an ambient scribe for clinic note documentation during this visit. 1. Essential Hypertension The patient is advised to continue taking valsartan 40 mg once daily for blood pressure management. Regular monitoring of blood pressure is recommended, and the patient should ensure medication adherence to prevent elevated readings. 2. Elevated Hemoglobin A1c The patient is encouraged to modify dietary habits to help reduce hemoglobin A1c levels. Follow-up in three months is recommended to reassess hemoglobin A1c and evaluate the effectiveness of dietary changes. During the visit, we discussed the importance of medication adherence for managing hypertension and the impact of dietary habits on hemoglobin A1c levels. I recommended continuing valsartan 40 mg once daily and advised dietary modifications to address the elevated hemoglobin A1c. A follow-up appointment in three months was suggested to monitor progress and adjust the management plan as needed. Orders: Orders AMB Hemoglobin A1c Today R73.03 - Prediabetes Patient Instructions: - Continue taking valsartan 40 mg once daily as prescribed. - Monitor blood pressure regularly and report any significant changes. - Modify dietary habits to help reduce hemoglobin A1c levels. - Schedule a follow-up appointment in three months to reassess blood pressure and hemoglobin A1c levels.
--- OUTSIDE RECORDS SUMMARY | 2025-02-15 15:08 | XMS_ITS ---
Author Name [facility] Organization Unknown Care Team Organization Name Specialty Phone Email Start Date End Da te [facility] 05/18/2022 02/02/2024
--- OUTSIDE RECORDS SUMMARY | 2025-02-15 15:08 | XMS_ITS | Clinical Summary ---
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
== END 2025-02-15 14:35 | disposition home or self-care (01) ==
LOC: HO.HMCSH 13:54
PROVIDERS: PCP Physician Assistant Medical; Visit Provider Physician Assistant Medical
DX: I10 Essential (primary) hypertension (principal); R73.03 Prediabetes

== ENCOUNTER → 2025-02-15 13:54 | Outpatient (BNVA) | payer OTHER, SELFPAY | PROVIDERS: PCP Physician Assistant Medical; Visit Provider Physician Assistant Medical | DX: I10 Essential (primary) hypertension (principal); R73.03 Prediabetes | CPT/HCPCS: 83036; 96127 ==

== ENCOUNTER → 2025-03-31 10:54 | Outpatient (BNV) | payer OTHER, SELFPAY | PROVIDERS: PCP Physician Assistant Medical; Visit Provider Specialist | DX: M54.50 Low back pain, unspecified (principal) | CPT/HCPCS: 72148 ==

== ENCOUNTER 2025-03-31 10:57 | Outpatient (REF) | payer OTHER, SELFPAY ==
--- NOTE | ~2025-03-31 | MR_ITS ---
CLINICAL HISTORY: M54.50 - Low back pain, unspecified MR lumbar spine without gadolinium Comparison: None Findings: No scoliosis or spondylolisthesis. No acute fracture or pathologic bone lesion. Cauda equina and conus medullaris within normal limits. No significant spinal canal or foraminal stenoses. No significant degenerative change. Paraspinous musculature intact. IMPRESSION: No acute findings. This document has been electronically signed by: Erick Reyna MD on 04/01/2025 11:49:58
--- OUTSIDE RECORDS SUMMARY | 2025-03-31 13:52 | XMS_ITS | Clinical Summary ---
Author Organization [facility] ity Address [address] [place] [address] Care Team Providers Care Medical I D Sales Name Role Phone Unavailable Primary Care [...] 2025 Influenza Vaccine (#1) 2025 05/20/2014, 2012 RSV Immunization Adult Patients (1 - 1-dose 75+ series) 2070 Hepatitis B Vaccines Completed 1995, 1995, 1995 [...]
== END 2025-03-31 10:58 | disposition home or self-care (01) ==
LOC: HO.MRI 10:57
PROVIDERS: PCP Physician Assistant Medical; Visit Provider Physician Assistant Medical
DX: M54.50 Low back pain, unspecified (principal)
CPT/HCPCS: 72148